=== PATIENT | male | born 1950 | race Hispanic/Latino ===

== ENCOUNTER 2021-12-05 15:38 | Inpatient (IN) | payer MEDICARE ==
[~2021-12-05] VITALS: Ht 165.1 cm; Wt 82.6 kg
[2021-12-05] MEDS ORDERED: POTASSIUM CHLORIDE 10% ELIXIR 20 MEQ/15 ML UDCUP PO PRN (16:30)
[2021-12-05] MEDS ORDERED: POTASSIUM CHLORIDE 20MEQ/100ML 100 ML IV PRN (16:30)
[2021-12-05] MEDS ORDERED: LIDOCAINE HCL-MPF 1% 2ML VIAL IJ PRN (16:30)
[2021-12-05] MEDS ORDERED: 0.9%NACL 10ML VIAL IVP PRN (16:30)
[2021-12-05 16:43] LABS: HEMATOCRIT 32.4 % (42-54); MEAN CORPUSCULAR HEMOGLOBIN 24.8 pg (27.0-33.0); MEAN CORPUSCULAR HGB CONC 32.7 g/dL (32.0-36.0); MEAN CORPUSCULAR VOLUME 75.7 fL (79-99); PLATELET COUNT (AUTO) 277 K/uL (130-400); RED BLOOD CELL COUNT(AUTO) 4.28 MIL/uL (4.50-6.20); RED CELL DISTRIBUTION WIDTH 16.5 % (11.0-15.5); WHITE BLOOD COUNT (AUTO) 7.5 K/uL (4.8-10.8)
[2021-12-05 16:59] LABS: ALBUMIN 3.8 g/dL (3.5-5.0); CREATININE 1.3 mg/dL (0.5-1.5); POTASSIUM 3.3 mmol/L (3.5-5.1); TOTAL PROTEIN, SERUM 7.4 g/dL (6.0-8.3)
[2021-12-05] MEDS ORDERED: ACETAMINOPHEN 500 MG TABLET PO PRN (17:00)
[2021-12-05 17:23] LABS: B-TYPE NATRIURETIC PEPTIDE 142 pg/mL (0-100)
[2021-12-05] MEDS ORDERED: ENAL10TA18 PO (17:37)
[2021-12-05] MEDS ORDERED: PANT40TA PO (17:37)
[2021-12-05] MEDS ORDERED: RANO500T2 PO ×2 (17:37)
[2021-12-05] MEDS ORDERED: FURO20TA6 PO (17:37)
[2021-12-05] MEDS ORDERED: LISI10TA24 PO (17:37)
[2021-12-05] MEDS ORDERED: CARV25TA PO (17:37)
[2021-12-05] MEDS ORDERED: CLOP75TA14 PO (17:37)
[2021-12-05] MEDS ORDERED: ICOS1CAP PO (17:37)
[2021-12-05] MEDS ORDERED: EZET10TA13 PO (17:37)
[2021-12-05] MEDS ORDERED: ISOS30TA92 PO ×2 (17:37)
[2021-12-05] MEDS ORDERED: ASPI-1197 PO (17:37)
[2021-12-05] MEDS ORDERED: NITROGLYCERIN 0.4 MG SL TAB SL PRN (18:30)
[2021-12-05] MEDS: **HM**(Icosapent Ethyl (Vascepa) 1 GM PO SCH (21:00)
[2021-12-05] MEDS: RANOLAZINE 500 MG TAB.SR.12H PO SCH (21:40)
[2021-12-05] MEDS: CARVEDILOL 25 MG TABLET PO SCH (21:40)
[2021-12-05] MEDS: PANTOPRAZOLE 40 MG TAB DR PO SCH (21:40)
[2021-12-05] MEDS: KCL 20 MEQ ERTAB PO PRN ×2 (21:42→23:52)
[2021-12-05 22:44] VITALS: BP 125/69
[2021-12-05 23:36] VITALS: BP 112/67
[2021-12-05 23:38] VITALS: BP 91/57
[2021-12-05] MEDS: ACETAMINOPHEN 325 MG TAB PO PRN (23:52)
[2021-12-06] VITALS (8 sets, daily range): BP systolic 98–139; BP diastolic 44–69
[2021-12-06] MEDS: FUROSEMIDE 20 MG TABLET PO SCH ×2 (01:23→11:30)
[2021-12-06] MEDS: KCL 20 MEQ ERTAB PO PRN ×3 (01:24→23:29)
[2021-12-06 04:39] LABS: EOSINOPHILS % (AUTO) 3.5 % (0.0-8.0); HEMATOCRIT 33.1 % (42-54); LYMPHOCYTES % (AUTO) 42.4 % (21.0-51.0); MEAN CORPUSCULAR HEMOGLOBIN 24.2 pg (27.0-33.0); MEAN CORPUSCULAR HGB CONC 31.4 g/dL (32.0-36.0); MONOCYTES % (AUTO) 9.4 % (3.0-13.0); PLATELET COUNT (AUTO) 268 K/uL (130-400); RED CELL DISTRIBUTION WIDTH 16.3 % (11.0-15.5); WHITE BLOOD COUNT (AUTO) 7.1 K/uL (4.8-10.8)
[2021-12-06 05:08] LABS: ALBUMIN 3.8 g/dL (3.5-5.0); CREATININE 1.3 mg/dL (0.5-1.5); POTASSIUM 3.6 mmol/L (3.5-5.1); TOTAL PROTEIN, SERUM 7.4 g/dL (6.0-8.3)
[2021-12-06] MEDS: CLOPIDOGREL 75MG TAB PO SCH (07:48)
[2021-12-06] MEDS: ISOSORBIDE MONO 30MG SR TAB PO SCH (07:48)
[2021-12-06] MEDS: CARVEDILOL 25 MG TABLET PO SCH (07:48)
[2021-12-06] MEDS: RANOLAZINE 500 MG TAB.SR.12H PO SCH ×2 (07:49→21:33)
[2021-12-06] MEDS: ASPIRIN 81MG CHEW TAB PO SCH (07:49)
[2021-12-06] MEDS: PANTOPRAZOLE 40 MG TAB DR PO SCH ×2 (07:49→21:32)
[2021-12-06] MEDS: EZETIMIBE 10 MG TAB PO SCH (07:59)
[2021-12-06] MEDS: **HM**(Icosapent Ethyl (Vascepa) 1 GM PO SCH ×2 (08:00→21:00)
[2021-12-06] MEDS ORDERED: ENALAPRIL MALEATE 10 MG TABLET PO SCH (09:00)
[2021-12-06] MEDS ORDERED: FUROSEMIDE 20 MG TABLET PO SCH (09:00)
[2021-12-06] MEDS ORDERED: SPIRONOLACTONE 25 MG TAB PO SCH (13:00)
[2021-12-06] MEDS ORDERED: ENOXAPARIN SODIUM 80 MG/0.8 ML SQ SCH (17:30)
[2021-12-06] MEDS: CARVEDILOL 12.5 MG TABLET PO SCH (21:33)
[2021-12-06] MEDS: BUMETANIDE 1MG/4ML VIAL IVP SCH (21:34)
[2021-12-06] MEDS: ACETAMINOPHEN 325 MG TAB PO PRN (21:38)
[2021-12-07] VITALS (10 sets, daily range): BP systolic 111–157; BP diastolic 51–96
[2021-12-07 04:28] LABS: BASOPHILS % (AUTO) 0.8 % (0.0-5.0); HEMATOCRIT 32.4 % (42-54); LYMPHOCYTES % (AUTO) 34.3 % (21.0-51.0); MEAN CORPUSCULAR HEMOGLOBIN 24.2 pg (27.0-33.0); MEAN CORPUSCULAR HGB CONC 31.5 g/dL (32.0-36.0); NEUTROPHILS % (AUTO) 52.6 % (40.0-77.0); PLATELET COUNT (AUTO) 254 K/uL (130-400); RED BLOOD CELL COUNT(AUTO) 4.21 MIL/uL (4.50-6.20); RED CELL DISTRIBUTION WIDTH 16.5 % (11.0-15.5); WHITE BLOOD COUNT (AUTO) 6.1 K/uL (4.8-10.8)
[2021-12-07 04:38] LABS: PROTHROMBIN TIME 10.9 SEC (9.6-11.6)
[2021-12-07 04:39] LABS: PARTIAL THROMBOPLASTIN TIME 30.6 SEC (26.3-35.5)
[2021-12-07 05:01] LABS: B-TYPE NATRIURETIC PEPTIDE 76 pg/mL (0-100)
[2021-12-07 05:19] LABS: % IRON SATURATION 6.3 % (30-44)
[2021-12-07 05:21] LABS: HEMOGLOBIN A1C 5.4 % (4.0-6.0)
[2021-12-07 05:27] LABS: CREATININE 1.7 mg/dL (0.5-1.5); THYROID STIMULATING HORMONE 1.7 uIU/mL (0.36-3.74)
[2021-12-07] MEDS ORDERED: 0.9%NACL 1000ML 1,000 ML IV SCH (07:00)
[2021-12-07] MEDS ORDERED: LIDOCAINE HCL 1% 20 ML VIAL ONE (07:19)
[2021-12-07] MEDS ORDERED: IOHEXOL-350 50ML VIAL IV ONE (07:20)
[2021-12-07] MEDS ORDERED: NITROGLYCERIN 50MG VIAL ONE (07:20)
[2021-12-07] MEDS ORDERED: HEPARIN 10,000 UNIT/10ML (1,000 UNIT/ML) VIAL ONE (07:20)
[2021-12-07] MEDS ORDERED: IOHEXOL 350 MG/ML 100ML INFUS..BTL IV ONE ×2 (07:20→08:03)
[2021-12-07] MEDS ORDERED: FENTANYL CITRATE PF 50 MCG/1 ML 2ML VIAL ONE (07:21)
[2021-12-07] MEDS ORDERED: MIDAZOLAM HCL 1 MG/ML 2ML VIAL ONE (07:21)
[2021-12-07] MEDS ORDERED: IOHEXOL-350 75 ML VIAL IV ONE (08:41)
[2021-12-07] MEDS: BUMETANIDE 1MG/4ML VIAL IVP SCH ×2 (09:00→11:00)
[2021-12-07] MEDS: **HM**(Icosapent Ethyl (Vascepa) 1 GM PO SCH ×2 (09:00→20:47)
[2021-12-07] MEDS ORDERED: SPIRONOLACTONE 25 MG TAB PO SCH (09:00)
[2021-12-07] MEDS: CLOPIDOGREL 75MG TAB PO SCH (11:01)
[2021-12-07] MEDS: ISOSORBIDE MONO 30MG SR TAB PO SCH (11:01)
[2021-12-07] MEDS: RANOLAZINE 500 MG TAB.SR.12H PO SCH ×2 (11:01→20:46)
[2021-12-07] MEDS: CARVEDILOL 12.5 MG TABLET PO SCH (11:02)
[2021-12-07] MEDS: ASPIRIN 81MG CHEW TAB PO SCH (11:02)
[2021-12-07] MEDS: EZETIMIBE 10 MG TAB PO SCH (11:02)
[2021-12-07] MEDS: PANTOPRAZOLE 40 MG TAB DR PO SCH ×2 (11:02→20:47)
[2021-12-07] MEDS: ACETAMINOPHEN 325 MG TAB PO PRN (20:46)
[2021-12-07] MEDS: CARVEDILOL 25 MG TABLET PO SCH (20:47)
[2021-12-08 03:30] VITALS: BP 121/49
[2021-12-08 03:49] LABS: BASOPHILS % (AUTO) 0.6 % (0.0-5.0); EOSINOPHILS % (AUTO) 5.2 % (0.0-8.0); HEMATOCRIT 31.3 % (42-54); LYMPHOCYTES % (AUTO) 25.7 % (21.0-51.0); MEAN CORPUSCULAR HEMOGLOBIN 24.3 pg (27.0-33.0); MEAN CORPUSCULAR HGB CONC 31.3 g/dL (32.0-36.0); MEAN CORPUSCULAR VOLUME 77.7 fL (79-99); MONOCYTES % (AUTO) 8.9 % (3.0-13.0); NEUTROPHILS % (AUTO) 59.3 % (40.0-77.0); PLATELET COUNT (AUTO) 245 K/uL (130-400); RED BLOOD CELL COUNT(AUTO) 4.03 MIL/uL (4.50-6.20); RED CELL DISTRIBUTION WIDTH 16.4 % (11.0-15.5); WHITE BLOOD COUNT (AUTO) 6.5 K/uL (4.8-10.8)
[2021-12-08 04:00] LABS: CREATININE 1.4 mg/dL (0.5-1.5); POTASSIUM 4.2 mmol/L (3.5-5.1)
[2021-12-08 08:00] VITALS: BP 132/67
[2021-12-08] MEDS: **HM**(Icosapent Ethyl (Vascepa) 1 GM PO SCH (09:00)
[2021-12-08] MEDS: CARVEDILOL 25 MG TABLET PO SCH (09:55)
[2021-12-08] MEDS: RANOLAZINE 500 MG TAB.SR.12H PO SCH (09:56)
[2021-12-08] MEDS: ISOSORBIDE MONO 30MG SR TAB PO SCH (09:56)
[2021-12-08] MEDS: ASPIRIN 81MG CHEW TAB PO SCH (09:56)
[2021-12-08] MEDS: CLOPIDOGREL 75MG TAB PO SCH (09:57)
[2021-12-08] MEDS: PANTOPRAZOLE 40 MG TAB DR PO SCH (09:57)
[2021-12-08] MEDS: EZETIMIBE 10 MG TAB PO SCH (09:57)
[2021-12-08 12:00] VITALS: BP 108/58
[2021-12-08] MEDS ORDERED: SACU1TAB PO (12:57)
[2021-12-08] MEDS ORDERED: ASPI-1197 PO (12:57)
[2021-12-08] MEDS ORDERED: CARV12.511 PO (12:57)
[2021-12-08] MEDS ORDERED: CLOP75TA14 PO (12:57)
[2021-12-08] MEDS ORDERED: SACUBITRIL/VALSARTAN 1 EACH TABLET PO SCH (21:00)
[2021-12-08] MEDS ORDERED: CARVEDILOL 12.5 MG TABLET PO SCH (21:00)
[2021-12-09] MEDS ORDERED: PANTOPRAZOLE 40 MG TAB DR PO SCH (09:00)
== END 2021-12-08 14:15 | disposition home or self-care (01) | DRG 280 ==
LOC: EDH 15:38 → EDHIP 15:51 → 2AH 22:26
PROVIDERS: ADMIT Internal Medicine; ATTEND Internal Medicine
PROC: 4A023N7 Measurement of Cardiac Sampling and Pressure, Left Heart, Percutaneous Approach (ICD-10-PCS; principal; 2021-12-07)
PROC: B2151ZZ Fluoroscopy of Left Heart using Low Osmolar Contrast (ICD-10-PCS; 2021-12-07)
PROC: B2131ZZ Fluoroscopy of Multiple Coronary Artery Bypass Grafts using Low Osmolar Contrast (ICD-10-PCS; 2021-12-07)
DX: I21.4 Non-ST elevation (NSTEMI) myocardial infarction (principal); I50.23 Acute on chronic systolic (congestive) heart failure; I13.0 Hypertensive heart and chronic kidney disease with heart failure and stage 1 through stage 4 chronic kidney disease, or unspecified chronic kidney disease; D50.9 Iron deficiency anemia, unspecified; E87.6 Hypokalemia; I25.5 Ischemic cardiomyopathy; N18.31 Chronic kidney disease, stage 3a; E78.5 Hyperlipidemia, unspecified; I25.119 Atherosclerotic heart disease of native coronary artery with unspecified angina pectoris; M54.9 Dorsalgia, unspecified; G89.29 Other chronic pain; K21.9 Gastro-esophageal reflux disease without esophagitis; Z86.16 Personal history of COVID-19; I25.2 Old myocardial infarction; Z79.02 Long term (current) use of antithrombotics/antiplatelets; Z79.82 Long term (current) use of aspirin; Z79.899 Other long term (current) drug therapy; Z87.01 Personal history of pneumonia (recurrent); Z87.11 Personal history of peptic ulcer disease; Z95.1 Presence of aortocoronary bypass graft; Z95.5 Presence of coronary angioplasty implant and graft; Z95.810 Presence of automatic (implantable) cardiac defibrillator
CPT/HCPCS: 36415; 71045; 80048; 80053; 80061; 82550; 82607; 82728; 82746; 83036; 83540; 83550; 83735; 83874; 83880; 84145; 84443; 84484; 85025; 85027; 85045; 85610; 85730; 93005; 93306; 93459; 99156; 99157; C1760; C1894; G0378; J1644; J1650; J2250; J3010; J3490; J7030; Q9967